=== PATIENT | male | born 1980 | race Asian ===

== ENCOUNTER 2021-08-28 17:23 | Emergency (ER) | payer OTHER ==
[~2021-08-28] VITALS: Ht 180.3 cm; Wt 74.8 kg
[2021-08-28] MEDS ORDERED: CEPHALEXIN500 MG PO (19:30)
[2021-08-28] MEDS ORDERED: ULTRAM 50MG50 MG PO (19:30)
== END 2021-08-28 19:47 | disposition home or self-care (01) ==
LOC: FSED 17:32
DX: S63.690A Other sprain of right index finger, initial encounter (principal); S63.681A Other sprain of right thumb, initial encounter; W01.0XXA Fall on same level from slipping, tripping and stumbling without subsequent striking against object, initial encounter; Y93.01 Activity, walking, marching and hiking; Y92.89 Other specified places as the place of occurrence of the external cause; B19.10 Unspecified viral hepatitis B without hepatic coma
CPT/HCPCS: 99283